=== PATIENT | female | born 1995 | race Caucasian/White ===

== ENCOUNTER 2019-02-17 11:16 | Emergency (ER) | payer BC, MEDICAID ==
[2019-02-17] MEDS ORDERED: Diphtheria,Pertussis(Acell),Tetanus Vaccine 0.5 ML SDV inactive IM ONE (12:30)
--- NOTE | 2019-02-17 12:36 | EDM.PDOC ---
ED HPI GENERAL MEDICAL PROBLEM - General Chief Complaint: Laceration Stated Complaint: laceration finger Time Seen by Provider: 02/17/19 12:00 Source of Information: Reports: Patient, RN History Limitations: Reports: No Limitations - History of Present Illness INITIAL COMMENTS - FREE TEXT/NARRATIVE: 23 yr old female presents with laceration to finger, was cutting a cheese can open at the arena for hockey [place]. States area had good bleeding from site. States unsure of last tetanus and no record with her today. States she has been in the [employer] program and just graduated from college and is working at her [employer] for the summer months. - Related Data Allergies Allergy/AdvReac Type Severity Reaction Status Date / Time No Known Allergies Allergy Verified 02/17/19 14:10 Home Meds: Home Meds NK [No Known Home Meds] 02/17/19 [History] ED ROS GENERAL - Review of Systems Review Of Systems: See Below Constitutional: Reports: No Symptoms HEENT: Reports: No Symptoms Respiratory: Reports: No Symptoms Cardiovascular: Reports: No Symptoms Musculoskeletal: Reports: No Symptoms Skin: Reports: Other (laceration of finger) Neurological: Reports: No Symptoms Psychiatric: Reports: No Symptoms Hematologic/Lymphatic: Reports: No Symptoms ED EXAM, GENERAL - Physical Exam Exam: See Below Exam Limited By: No Limitations General Appearance: Alert, No Apparent Distress Extremities: Normal Inspection, Normal Range of Motion, Normal Capillary Refill , Other (Good finger to thumb touch, good ROM. No tingling/no numbness.) Neurological: Alert, Oriented, Normal Cognition Psychiatric: Normal Affect, Normal Mood Skin Exam: Warm, Dry, Normal Color, Other (superficial laceration of finger, half hastings shape of 1cm by 0.5 cm.) Course - Vital Signs Last Recorded V/S: Last Vital Signs Temp 98.8 F 02/17/19 11:30 Pulse 74 02/17/19 11:30 Resp 18 02/17/19 11:30 BP 118/77 02/17/19 11:30 Pulse Ox 99 02/17/19 11:30 - Orders/Labs/Meds Orders: Active Orders 24 hr Category Date Time Status Vaccines to be Administered [RC] PER UNIT ROUTINE Care 02/17/19 12:30 Active Meds: Medications Discontinued Medications Generic Name Dose Route Start Last Admin Trade Name Freq PRN Reason Stop Dose Admin Diphtheria/Tetanus/Acell Pertussis 0.5 ml 02/17/19 12:30 02/17/19 12:25 Boostrix IM 02/17/19 12:31 0.5 ml .ONCE ONE Administration - Re-Assessments/Exams Free Text/Narrative Re-Assessment/Exam: 02/17/19 16:48 LE Superficial laceration to finger. Area cleansed with hibiclenz and saline rinse. Tetanus vaccine updated. Durabond applied to wound. Recommend to keep area clean and dry for 7-10 days. Recommend no antibiotic oint to area. Dressing applied per RN. Pt tolerated well, discharge in no acute distress. RTC or ER if any signs of infection noted. Departure - Departure Time of Disposition: 12:29 Disposition: Home, Self-Care 01 Condition: Good Clinical Impression: Laceration - Discharge Information *PRESCRIPTION DRUG MONITORING PROGRAM REVIEWED*: Not Applicable *COPY OF PRESCRIPTION DRUG MONITORING REPORT IN PATIENT VASQUEZ: Not Applicable Instructions: Laceration Care, Adult Referrals: PCP,None [Primary Care Provider] - Forms: ED Department Discharge Additional Instructions: keep dry, Return to clinic or ER if increased pain,swelling rednees or edmea - My Orders Last 24 Hours: My Active Orders 02/17/19 12:30 Vaccines to be Administered [RC] PER UNIT ROUTINE - Assessment/Plan Last 24 Hours: My Active Orders 02/17/19 12:30 Vaccines to be Administered [RC] PER UNIT ROUTINE Plan: Tetanus vaccine updated. Durabond applied to wound. Recommend to keep area clean and dry for 7-10 days. Recommend no antibiotic oint to area. Dressing applied per RN. Pt tolerated well, discharge in no acute distress. RTC or ER if any signs of infection noted.
== END 2019-02-17 12:29 | disposition home or self-care (01) ==
LOC: LB.ED 11:16
DX: S61.218A Laceration without foreign body of other finger without damage to nail, initial encounter (principal); Z23 Encounter for immunization; W26.8XXA Contact with other sharp object(s), not elsewhere classified, initial encounter
CPT/HCPCS: 90471; 90715; 99282

== ENCOUNTER 2025-07-06 10:57 | Emergency (ER) | payer BC, OTHER ==
[2025-07-06] MEDS: Ondansetron 4 MG Tab.DIS PO ONE (11:33)
[2025-07-06] MEDS: Ketorolac 30 MG/ML SDV IM ONE (11:35)
[2025-07-06 11:56] LABS: BASOPHILS ABSOLUTE AUTO 0.04 K/uL (0.02-0.10); BASOPHILS PERCENT AUTO 0.6 % (0.0-0.5); EOSINOPHILS ABSOLUTE AUTO 0.04 K/uL (0.04-0.40); EOSINOPHILS PERCENT AUTO 0.6 % (1.0-5.0); LYMPHOCYTES ABSOLUTE AUTO 1.72 K/uL (1.50-4.00); LYMPHOCYTES PERCENT AUTO 26.8 % (20.0-40.0); MEAN PLATELET VOLUME 11.2 fL (6.0-10.0); MONOCYTES ABSOLUTE AUTO 0.41 K/uL (0.20-0.80); MONOCYTES PERCENT AUTO 6.4 % (3.0-10.0); NEUTROPHILS ABSOLUTE AUTO 4.21 K/uL (2.00-7.50); NEUTROPHILS PERCENT AUTO 65.6 % (45.0-70.0); PLATELET COUNT,PLT 214 K/uL (150-500); RED BLOOD CELL COUNT 4.72 M/uL (3.80-5.80); RED CELL DISTRIBUTION WIDTH 12.5 % (11.0-16.0); WHITE BLOOD CELL COUNT,WBC 6.4 K/uL (4.0-11.0)
[2025-07-06 11:59] LABS: APPEARANCE,URINE CLEAR (CLEAR); GLUCOSE,URINE NEGATIVE (NEGATIVE); OCCULT BLOOD,URINE NEGATIVE (NEGATIVE)
[2025-07-06 12:23] LABS: A/G RATIO 1.1 (0.8-2.0); ALANINE AMINOTRANSFERASE,ALT 18.0 U/L (12-78); ASPARTATE AMNIOTRANSFERASE,AST 13.0 U/L (15-37); BILIRUBIN TOTAL 0.7 mg/dL (0.0-1.0); BLOOD UREA NITROGEN,BUN 12.0 mg/dL (8-26); CARBON DIOXIDE,CO2 28.0 mmol/L (21.0-32.0); CHLORIDE,CL 101.0 mmol/L (98-107); CREATININE 0.94 mg/dL (0.55-1.02); EST CRCL DRUG DOSING (CG) 69.84 mL/min; ESTIMATED GFR 84.0 mL/min (>60); GLUCOSE RANDOM 86.0 mg/dL (74-100); POTASSIUM,K 4.1 mmol/L (3.5-5.1); PROTEIN TOTAL,TP 7.9 g/dL (6.4-8.2); SODIUM,NA 138.0 mmol/L (136-145)
== END 2025-07-06 13:53 | disposition home or self-care (01) ==
LOC: LB.ED 10:57
DX: N83.201 Unspecified ovarian cyst, right side (principal)
CPT/HCPCS: 36415; 76830; 76856; 80053; 81003; 81025; 85025; 86140; 96372; 99284; J1885; Q0162